=== PATIENT | male | born 1975 | race Caucasian/White ===

== ENCOUNTER 2018-03-11 04:38 | Emergency (ER) | payer MEDICAID, SELFPAY ==
[2018-03-11 04:39] VITALS: BP 128/48; PULSE 68; RESP 22; TEMP 36.6; O2SAT 99; BMI 28.8
--- NOTE | 2018-03-11 04:55 | ED.DCSUM_ITS ---
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 He had gradual onset of pain to the right eye. He is unsure if he may have gotten a piece of metal in his eye. He states his left eye is slightly dry and scratchy. He does not wear glasses or contacts. He denies vision change. Physical Examination: Vital signs are unremarkable. Head neck examination reveals no eyelid edema or erythema. Right eye is diffusely injected and tearing. Left eye is unremarkable. Pupils are equal and reactive. Extraocular movements are intact. Heart is regular rate and rhythm. Lung sounds are clear. Test Results: [] Emergency Department Course and Treatment: Right eye was examined with slit lamp. No foreign bodies are noted. Following tetracaine drops patient has no pain in the right eye. Fluorescein was applied and there is diffuse uptake noted consistent with UV keratitis. Patient be given gentamicin drops to prevent secondary infection. Tetanus is already up-to-date. Treatment Plan: [] Disposition: Discharge Impression: UV keratitis right eye This note was generated with [employer] dictation software. It may contain incorrect words, spelling, and punctuation that were not noted in review of the chart prior to signing ED Disposition - Plan for ED Patient: Disposition: Home or Assisted Living Chief Complaint: Eye Problem Instructions: ED Keratitis UV Referrals: [facility],Out of [Primary Care Provider] - Additional Instructions: Use Gentamicin drop to right eye every 6 hours until symptom free for 24 hours.
--- NOTE | 2018-03-11 05:03 | ED.DEP ---
ED Disposition - Plan for ED Patient: Disposition: Home or Assisted Living Chief Complaint: Eye Problem Instructions: ED Keratitis UV Referrals: [facility],Out of [Primary Care Provider] - Additional Instructions: Use Gentamicin drop to right eye every 6 hours until symptom free for 24 hours.
[2018-03-11] MEDS: Gentamicin Sulfate 1 OPTH.BTL 1 DRP RIGHT EYE (05:15)
[2018-03-11] MEDS: Tetracaine 0.5% Ophthalmic Bottle 1 DRP RIGHT EYE (05:15)
--- NOTE | 2018-03-11 05:18 | ED.RN ---
DISCHARGE INSTRUCTIONS GIVEN TO AND REVIEWED WITH PATIENT, PATIENT DENIES QUESTIONS OR CONCERNS AND VOICES UNDERSTANDING OF DISCHARGE INSTRUCTIONS. PT AMBULATES OUT OF ROOM WITHOUT ISSUE.
== END 2018-03-11 05:19 | disposition home or self-care (01) ==
LOC: ED 05:13
PROVIDERS: Emergency Provider Emergency Medicine
DX: H16.9 Unspecified keratitis (principal); I10 Essential (primary) hypertension
CPT/HCPCS: 99282